=== PATIENT | female | born 1980 | race Caucasian/White ===

== ENCOUNTER → 2021-01-24 | Outpatient (CLI) | payer BC ==
[~2021-01-24] MED LIST: CLARITIN PO; DHA; DHA PO; FLONASE0.05 MG/AC NS; MOTRIN 600600 MG/TAB PO; PRENATAL VITAMI1 TAB PO
== END ==
LOC: ZCOL.LAB 10:44
DX: Z20.822 Contact with and (suspected) exposure to COVID-19 (principal)

== ENCOUNTER → 2022-05-25 | Outpatient (CLI) | payer OTHER | LOC: MC.RAD 14:19 | DX: Z12.31 Encounter for screening mammogram for malignant neoplasm of breast (principal) ==

== ENCOUNTER → 2023-05-31 | Outpatient (CLI) | payer BC | LOC: MC.RAD 12:55 | DX: R92.8 Other abnormal and inconclusive findings on diagnostic imaging of breast (principal) ==